=== PATIENT | female | born 1990 | race Caucasian/White ===

== ENCOUNTER 2019-04-04 00:10 | Emergency (ER) | payer MEDICAID, OTHER ==
[~2019-04-04] VITALS: Ht 165.1 cm; Wt 92.5 kg
[2019-04-04 00:25] VITALS: BP 147/95
--- NOTE | 2019-04-04 00:25 | NUR ---
PT AMBULATED TO BED 4. UNABLE TO PROVIDE URINE AT THIS TIME.
[2019-04-04 00:41] LABS: BASOPHILS # (AUTO) 0.1 K/uL (0.00-0.22); BASOPHILS % (AUTO) 0.7 % (0.0-2.0); EOSINOPHILS # (AUTO) 0.3 K/uL (0-0.4); EOSINOPHILS % (AUTO) 2.3 % (0.0-4.0); HEMATOCRIT 37.6 % (36-48); HEMOGLOBIN 12.6 g/dL (12.0-16.0); LYMPHOCYTES # (AUTO) 2.6 K/uL (2.5-16.5); LYMPHOCYTES % (AUTO) 20.6 % (20.5-51.1); MEAN CORPUSCULAR HEMOGLOBIN 29 pg (27-31); MEAN CORPUSCULAR HGB CONC 34 g/dL (33-37); MEAN CORPUSCULAR VOLUME 85.4 fL (80-94); MONOCYTES # (AUTO) 0.7 K/uL (0.8-1.0); MONOCYTES % (AUTO) 5.7 % (1.7-9.3); NEUTROPHILS # (AUTO) 8.9 K/uL (1.8-7.7); NEUTROPHILS % (AUTO) 70.7 % (42.2-75.2); PLATELET COUNT (AUTO) 309 K/uL (140-450); RED CELL DISTRIBUTION WIDTH 14.7 % (11.6-13.7); WHITE BLOOD COUNT (AUTO) 12.6 K/uL (4.8-10.8)
--- NOTE | 2019-04-04 00:51 | NUR ---
BIB SELF. STATES SHE IS 13 WEEKS . REPORTS MINIMAL SPOTTING WHEN SHE PEES. REPORTS NO PAIN OR CRAMPING. NO OTHER SYMPTOMS REPORTED AT THIS TIME.
[2019-04-04 00:59] LABS: ANION GAP 12.5 (8-16); CARBON DIOXIDE 24.5 mmol/L (21-32); CREATININE 0.5 mg/dL (0.6-1.3)
[2019-04-04 01:05] LABS: APPEARANCE,URINE CLEAR (CLEAR); BILIRUBIN,URINE NEGATIVE (NEGATIVE); BLOOD, URINE 2+ (NEGATIVE); COLOR,URINE YELLOW (YELLOW); LEUKOCYTE ESTERASE ,URINE NEGATIVE (NEGATIVE); NITRITE, URINE NEGATIVE (NEGATIVE); UGLUCOSE NEGATIVE (NEGATIVE)
[2019-04-04 01:23] LABS: RBC,URINE 11-20 (MOD) /HPF (0-5); WBC,URINE 0-5 /HPF (0-5)
[2019-04-04 02:01] VITALS: BP 138/92
--- NOTE | 2019-04-04 02:02 | NUR ---
Patient discharged with v/s stable. Written and verbal after care instructions given and explained. Patient verbalized understanding. Ambulatory with steady gait. All questions addressed prior to discharge. Advised to follow up with [facility].
== END 2019-04-04 02:01 | disposition home or self-care (01) ==
LOC: MED 00:10
DX: O20.8 Other hemorrhage in early pregnancy (principal); Z3A.12 12 weeks gestation of pregnancy
CPT/HCPCS: 36415; 76801; 80048; 81001; 84702; 85025; 86900; 86901; 99284; Q0092